=== PATIENT | male | born 1960 | race Two or more races ===

== ENCOUNTER → 2022-10-06 | Outpatient (CLI) | payer BC, SELFPAY ==
--- NOTE | 2022-10-06 13:30 | HEM_PTH ---
PATIENT: UBALDO PRAKASH LOC: [facility] U#:[id number] AGE/SX: 62/M ROOM: RE10/06/[address]: Dr. Anton Mathew MD : 1960 BED: DIS: 10/06/2022 SPEC #: [id number] RECD: 10/06/22 14:49 STATUS: PASCUAL RACHEL #: [id number] ALTAGRACIA: 10/06/22 13:[address]: Anton Mathew DEPT: SURGICAL PATHOLOGY RECD BY: Julissa Mendez ENTERED: 10/07/22 08:59 SP TYPE: HEMORRHOID OTHR DR: No Primary Care Phys Tissues: HEMORRHOIDS Procedures: Surgery Specimen Level II HEADER OPERATION: Excision of hemorrhoid PRE-OP DIAGNOSIS: Hemorrhoids TISSUE SUBMITTED: Hemorrhoid tissue MICROSCOPIC DIAGNOSIS Hemorrhoidal tissue, hemorrhoidectomy: Submucosal vascular ectasia, thrombosis and focal mucosal ulceration. See comment. AM:edmund 10/08/2022 COMMENT The specimen is consistent with hemorrhoidal tissue. Clinical correlation is suggested. MICROSCOPIC DESCRIPTION Slides are reviewed. GROSS DESCRIPTION Received in fixative is one container labeled with the patient's name and designated hemorrhoid tissue. The specimen consists of a anthony mucosal tissue measuring 1.5 x 1.5 x 0.6 cm. The specimen is inked, bisected and submitted entirely in one cassette. / SJ:edmund 10/07/2022 TC:2 CPT: 73786
== END | disposition home or self-care (01) ==
LOC: LABSPEC 14:55
PROVIDERS: Referring Provider Surgery; Visit Provider Surgery
DX: K64.9 Unspecified hemorrhoids (principal)
CPT/HCPCS: 88302; 88304

== ENCOUNTER 2024-09-21 17:00 | Outpatient (RCR) | payer BC, SELFPAY ==
--- NOTE | 2024-09-13 07:41 | HP.PTEVAL_ITS ---
Patient's Visit Information Visit Information Visit Information: UBALDO PRAKASH is a 64 year old M referred to Physical Therapy by [facility] with a diagnosis of LBP decompression 08/22/24. Date of Evaluation: 09/12/24 Physical Therapist: Samir Polanco, PT, ATC Visit Plan Frequency: 1x/Week Duration: 2 Weeks Plan: Issue and instruct pt on HEP of core strengthening on next visit Subjective Subjective: Pt reports he has had LBP for approximately 2 years. Pt notes he carried heavy luggage at that time for his and kids. Pt notes the pain e ventually went away, but then returned 1 year later. Pt notes he has had an MRI which revealed mild to moderate degenerative changes. Pt reports he had an injection in his LB on 4 separate episodes which helped minimally. Pt then had minimally invasive decompression performed 3 weeks ago which has made him somewhat better, but pt notes he is not as much better as he would like to have been. Pt reports he had B LE radiculopathy prior to the surgery, but notes he only has it in his R LE near the lateral malleolus. Pt denies sleep difficulty at this time secondary to pain. Pt reports his pain is worse in the morning. Pt notes his LBP is 0/10 at rest, and elevates to 6/10 at worst. Pt reports he used to have difficulty with getting ready in the morning, but is much better with all these tasks at this time. Pt reports walking for 30 min would increase his pain prior to surgery, and is now able to ambulate 45 min until needing to rest. Pain LBP: Pain Intensity (Out of 10): 0 Pain Intensity Range: 6 Objective Objective: Neuro: B LE sensation is WNL to light touch. B patellar reflex= 1/3 Observation: Pt notes incisions are healed MMT: B LE's are grossly 5/5 throughout ROM: Pt is moderately to severely limited with L/S extension. All other motions are WFL. Goals Goal 1:: Pt will be I with HEP Goal Time Frame: 2 Weeks Rehabilitation Potential Physical Therapy Diagnosis: Pt has LBP and core weakness secondary to L/S decompression Rehabilitation Potential: Good Anticipated Interventions Patient/Client Instruction: Educate patient on: Condition and Plan of Care For the Purpose of:: To improve self management Therapeutic Exercise to Include: Strength training, Endurance training, Body mechanics, Postural training, Flexibilty training and Dynamic Lumbar Stabilization For the Purpose of:: To decrease pain, To increase ROM and To improve muscle performance and motor function Text: Thank you for the opportunity to evaluate your patient. For Medicare and Medicare HMO plans, please review the plan of care and approve it. It will need to be FAXED BACK to us at [phone] for Medicare purposes. For Medicare only, by signing this I certify the plan of care. Please let me know if there are questions or concerns regarding this plan of care. Physician Signature: Date:
--- NOTE | 2024-11-22 13:37 | HP.PTDCNRP_ITS ---
Patient Information Patient Information: UBALDO PRAKASH was seen in my office for initial evaluation on 09/12/24. The following Plan of Care was established for this patient: POC Established Initial Frequency: 1x/Week Initial Duration: 2 Weeks Anticipated Interventions Patient/Client Instruction: Educate patient on: Condition and Plan of Care For the Purpose of:: To improve self management Therapeutic Exercise to Include: Strength training, Endurance training, Body mechanics, Postural training, Flexibilty training and Dynamic Lumbar Stabilizati on For the Purpose of:: To decrease pain, To increase ROM and To improve muscle performance and motor function Last Seen Last Seen: This patient was last seen in our office . Pertinent comments regarding their Physical therapy will appear below: Pt has not returned for greater than 30 days and is discontinued at this time. At this point I will be discontinuing this patient from physical therapy. I would be happy to see this patient again in the future if found appropriate by the physician. Thank you! Samir Polanco, PT, ATC
== END 2024-09-21 19:00 | disposition home or self-care (01) ==
LOC: PT 17:00
DX: M48.062 Spinal stenosis, lumbar region with neurogenic claudication (principal)
CPT/HCPCS: 97110; 97161